=== PATIENT | male | born 1945 | race African-American/Black ===

== ENCOUNTER 2016-06-18 05:56 | Inpatient (IN) | payer OTHER ==
--- NOTE | ~2016-06-18 | OR ---
Unit #: [id number] #: [id number] Patient: GEORGE BENTLEY [id number] [address] [place], [place] [address] [id number] I MR#: [id number] NAME: GEORGE BENTLEY ROOM: [facility] Date of Procedure: 06/18/2016 Admission Date: 06/18/2016 Surgeon: Tony Hernandez M.D. : 1945 Attending Physician: Tony Hernandez M.D. Primary Care Physician: Sol Wall M.D. OPERATIVE REPORT PREOPERATIVE DIAGNOSIS Left shoulder osteoarthritis. POSTOPERATIVE DIAGNOSIS 1. Left shoulder osteoarthritis. 2. Left shoulder biceps tenosynovitis. PROCEDURES PERFORMED 1. Left reverse shoulder arthroplasty. 2. Left shoulder biceps tenodesis. IMPLANTS 1. DJO Surgical P2 baseplate with 32, neutral glenosphere. 2. DJO Surgical AltiVate size 8 press-fit humeral stem with a 32, +4 semiconstrained humeral socket liner. NURSE LEADER SHIRA Solis. ANESTHESIA General with interscalene nerve block. ESTIMATED BLOOD LOSS 200 mL. COMPLICATIONS None apparent. DRAINS Medium Hemovac x1. INDICATIONS FOR PROCEDURE Mr. Bentley is a 71-year-old gentleman with a history of longstanding glenohumeral joint osteoarthritis. He has medialization of the glenoid. We have discussed anatomic total shoulder arthroplasty versus reverse shoulder arthroplasty. He prefers one surgery with low risk for failure and need for revision. As such, we have elected to proceed with a reverse shoulder arthroplasty. The risks, benefits, and nature of the surgery have been discussed with the patient. He elected to proceed. DESCRIPTION OF PROCEDURE The patient was identified in the preoperative holding area. The Unit #: [id number] #: [id number] Patient: GEORGE BENTLEY operative site was marked. Preoperative antibiotics were administered. A regional anesthetic block was performed. The patient was brought to the operating room and placed supine on the operating table. A general anesthetic was induced. The left upper extremity was then prepped and draped in sterile fashion. A standard deltopectoral incision was made. Dissection was carried down through the subcutaneous tissues. The cephalic vein was retracted medially with the pectoralis major. The subdeltoid space and subacromial spaces were developed. The 3 sisters were identified medially along the inferior border of the subscapularis. These were cauterized with the Bizerra.rus electrocautery. The long head of the biceps tendon sheath was then opened and was noted to have significant amount of proliferative tenosynovium present. A biceps tenodesis was then performed to the superior border of the pectoralis major tendon with a #2 FiberWire using a locking Krackow stitch. The biceps tendon sheath was then opened all the way up into the rotator interval into the base of the labrum. The biceps was then exposed and excised. The subscapularis was released under direct subscapularis peel. The shoulder was dislocated anteriorly. Humeral head osteophytes were removed with an osteotome. The extramedullary cutting guide was attached and the humeral head osteotomy was performed. The humeral head was noted to have full-thickness cartilage loss with significant pitting and even a synovial type lining on the head itself. The humerus was then subluxed posteriorly and the glenoid exposed. Exposure was initially quite tight. His soft tissue was extremely contracted. A circumferential labral release was performed as the labrum was excised. The inferior capsule was released off the inferior aspect of the glenoid. The axillary nerve was identified by digital palpation. This was protected and the inferior capsule released as well and performing a capsulotomy. The humerus was unable to float away from the glenoid and we had significantly improved mobility and posterior displacement of the humerus. Once we had adequate exposure, we drilled our centering hole and then inserted the reaming tap. We reamed with a starter and small reamers. We then inserted the base plate. This achieved solid purchase. We then placed 4 peripheral locking screws. This was a 30 mm screw superiorly, 18 mm inferiorly, and 14 mm anteriorly and posteriorly. The 32 neutral glenosphere was inserted. Attention was then turned back to the humerus, which was delivered back into the operative field anteriorly. A freehand ball reaming was performed of the humerus. We sounded the canal with a size 8 reamer. It had fairly thick cortices and we elected to place a size 8 stem. This was then press-fit and achieved good solid press-fit. We then trialed with a 32 neutral, 32 +4, and 32 +4 semiconstrained humeral socket liner. The best tension was with the semiconstrained liner. The shoulder was stable throughout range of motion and he had passive forward elevation of greater than 130 degrees. The real component was then impacted in place. The shoulder was then reduced and again taken through range of motion was stable. The subscapularis was not repaired. The leading edge of this was excised so as to not impinge in the prosthetic articulation. The wound was then irrigated with a dilute Betadine solution followed by pulsatile lavage. The deltopectoral interval was closed with 0 Vicryl followed by 2-0 Vicryl in the subcutaneous tissues and a running Monocryl in the skin. Steri-Strips and sterile dressings were applied. The patient was placed into a shoulder immobilizer. DISPOSITION Unit #: [id number] #: [id number] Patient: GEORGE BENTLEY Stable to the recovery room. Dictated by... Leeroy Gregg/lindsey TD: 06/19/2016 01:20 JOB #: [id number] OPERATIVE REPORT X Tony Hernandez MD X PROCEDURE OPERATIVE NOTE
--- NOTE | ~2016-06-18 | DS ---
Unit #: [id number] #: [id number] Patient: GEORGE BENTLEY [id number] [address] [place], [place] [address] [id number] I MR#: [id number] NAME: GEORGE BENTLEY ROOM: 456 Age: 71 Sex: M Admission Date: 06/18/2016 : 1945 Discharge Date: 06/19/2016 Attending Physician: Tony Hernandez M.D. Primary Care Physician: Sol Wall M.D. DISCHARGE SUMMARY ADMITTING DIAGNOSIS Left glenohumeral joint arthritis. DISCHARGE DIAGNOSIS Left glenohumeral joint arthritis, status post left reversed shoulder arthroplasty. SECONDARY DIAGNOSES 1. History of PE. 2. Thrombophilia. 3. Hypertension. 4. Diabetes mellitus. 5. Benign prostatic hypertrophy. PROCEDURE On 06/18/2016, Mr. Bentley underwent a left reversed shoulder arthroplasty. Please see operative report for further details. BRIEF HISTORY Mr. Bentley is a 71-year-old male who we have been treating for left glenohumeral joint arthritis. He has failed conservative treatment at this point and would like to discuss surgical interventions. We recommended a left reversed shoulder arthroplasty. The benefits, risks, and alternative were discussed with the patient and he has elected to proceed with surgery. HOSPITAL COURSE After surgery, the patient was transferred to the orthopedic unit for postoperative care. The night of surgery was uneventful. The patient remained stable and his pain was well controlled. On postoperative day #1, the patient's vital signs remained stable. He was awake, alert, and oriented x3 in no acute distress. His left upper extremity incision was clean, dry, and intact with no surrounding erythema, warmth, or hematoma. He was neurovascularly intact with median, ulnar, and radial nerves. He had normal sensation to light touch in all five digits. His hemoglobin was 13.4, white blood cell count was 8.3, and INR was 1. He is currently on prophylactic dose of Lovenox and his Coumadin was restarted to get him back to therapeutic levels. Postoperative x-rays of the left shoulder reveal that he is status post left reversed shoulder arthroplasty. Hardware remains in correct anatomical alignment. The patient worked with physical therapy today who recommended additional PT to build strength. The patient does live at home with his significant other, but she has a difficult time getting Unit #: [id number] #: [id number] Patient: GEORGE BENTLEY around herself so the patient is requesting home health physical therapy to work on strengthening and for other assistance. His Hemovac drain had approximately 110 mL of discharge overnight. This was discontinued in the room today. He is nonweightbearing on his left upper extremity in his sling. CONDITION AT DISCHARGE Stable. DISPOSITION The patient will be discharged home with home health therapy. He also has a significant other who can help with postoperative care. DISCHARGE MEDICATIONS Include: 1. Flomax 0.4 mg every day. 2. Lovenox 40 mg subcu. every 24 hours. 3. Coumadin 2.5 mg Thursday through Thursday. 4. Coumadin 5 mg on Thursday. 5. Glucophage 1500 mg p.o. in the morning. 6. Glucophage 1000 mg p.o. at bedtime. 7. Lisinopril 10 mg p.o. in the morning. 8. Percocet 5/325 mg 1-2 tabs p.o. q.4 hours p.r.n. The patient was sent home with prescriptions for Percocet, dispense #65, and Lovenox, dispense #4. DISCHARGE INSTRUCTIONS 1. The patient will be discharged home with home health therapy. 2. He will follow up with Dr. Hernandez in two weeks' time. 3. He will follow up with Dr. Gan, his plastic manager and oncologist on 06/23/2016, for his INR to be checked. Anticoagulation was discussed with Dr. Gan and he recommending restarting the Coumadin after surgery and placing the patient on Lovenox postoperatively at 40 mg every 24 hours until his INR is therapeutic. The patient will be sent home on Lovenox and his Coumadin will be restarted at this time. 4. Patient will be nonweightbearing of the lower extremity in a sling. He may remove his sling 2-3 times a day to perform pendulum as well as range of motion of the elbow, wrist, and hand. 5. He will perform daily dressing changes to the left upper extremity incision. 6. He is not to get his incision wet. He may shower, but he must keep an occlusive dressing over the incision site. Dictated by... Maddi Lee APRN for Leeroy Gregg/ledy TD: 06/20/2016 10:00 JOB #: [id number] Unit #: [id number] #: [id number] Patient: PAYAL BENTLEYRUPANATALEE DISCHARGE SUMMARY X MADDI LEE APRN X DISCHARGE SUMMARY
--- NOTE | ~2016-06-18 | DS ---
Unit #: [id number] #: [id number] Patient: GEORGE BENTLEY [id number] [address] [place], [place] [address] [id number] I MR#: [id number] NAME: GEORGE BENTLEY ROOM: [facility] Age: 71 Sex: M Admission Date: 06/18/2016 : 1945 Discharge Date: 06/19/2016 Attending Physician: Tony Hernandez M.D. Primary Care Physician: Sol Wall M.D. DISCHARGE SUMMARY ADDENDUM The patient's hematology and oncologist is Dr. Shelton Escalante. In his discharge summary, it states that it is Dr. Gan but this is an addendum to correct that. He will follow up with Dr. Shelton Escalante with the [facility] hematology and oncology group. His followup appointment is to be made for 06/23/2016. Dictated by... Maddi Lee APRN for Tony Hernandez M.D. TAMIKO/zach TD: 06/23/2016 07:05 JOB #: [id number] DISCHARGE SUMMARY X MADDI LEE APRN X DISCHARGE SUMMARY
--- NOTE | ~2016-06-18 | CR229 ---
[facility] A Service of [facility] & [facility] RADIOLOGY TEXT RESULTS PATIENT: GEORGE BENTLEY LOCATION: [facility] 456-01 : [birth year] UNIT #: [id number] AGE: [address]: Tony Hernandez MD SEX: M ORDER DR: [id number] [facility] [address] [place], [place] [address] [id number] MR#: [id number] Acc #: [id number] NAME: GEORGE BENTLEY : 1945 SEX: M STUDY DATE/TIME: 06/18/2016 11:07 UNIT: [facility] ROOM: [facility] STUDY DESCRIPTION: CR Shoulder Min 2 View Lt Attending Physician: Tony Hernandez M.D. Ordering Physician: Tony Hernandez M.D. Primary Care Physician: Sol Wall M.D. MEDICAL IMAGING REPORT This report is preliminary unless electronic signature is present EXAM Left shoulder series 06/18/2016 HISTORY Postop total PACU front. FINDINGS AP internal-external rotation views left shoulder presented. Status post left shoulder arthroplasty. Orthopedic hardware normally located and aligned. Quileute bony structures show no fracture. Surgical drain in the operative bed. Small amount of subcutaneous air in the operative bed. The visualized ribs are intact. There are some patchy and linear densities in the visualized left lung which is low in volume. Findings probably reflect postoperative atelectasis. Attention at followup recommended. Dictated by... Josias Hernandez M.D. THIS IS AN ELECTRONICALLY VERIFIED REPORT Josias Hernandez M.D. at 06/19/2016 11:43 AM GLEN/paul TD: 06/18/2016 14:19 JOB #: [id number] MEDICAL IMAGING REPORT COPY
[~2016-06-18 05:56] MED LIST: ALEVE220 M1 PO; COUMADIN2.5 MG PO; COUMADIN5 MG; COUMADIN5 MG PO; FLOMAX0.4 M1 PO; LISINOPRIL10 MG PO; LOVENOX150 MG/ML SUBQ; METFORMIN PO; SYNTHROID
[2016-06-18 07:09] LABS: PROTHROMBIN TIME (PATIENT) 10.7 SECONDS (9.6-11.5)
[2016-06-19 03:53] LABS: BASOPHIL% 0.4 % (0-2.5); EOSINOPHIL# 0.1 X10e3 (0-0.7); EOSINOPHIL% 1.4 % (0.0-7.0); HEMATOCRIT 40.8 % (38.0-50.0); HEMOGLOBIN 13.4 gm/dL (13.0-16.0); LYMPHOCYTE# 0.9 X10e3 (1.0-3.5); LYMPHOCYTE% 11.3 % (17.0-45.0); MEAN CELL VOLUME 85.3 FL (83-96); MEAN CORPUSCULAR HGB CONC 32.8 g/dL (30-36); MEAN PLATELET VOLUME 8.9 FL (6.5-11.5); MONOCYTE# 0.7 X10e3 (0-1.0); MONOCYTE% 8.8 % (3.0-12.0); NEUTROPHIL# 6.5 X10e3 (1.5-7.1); NEUTROPHIL% 78.1 % (40-75); PLATELET COUNT 204 X10e3 (140-420); RED BLOOD COUNT 4.78 X10e (3.90-5.60); RED CELL DISTRIBUTION WIDTH 15.9 % (11.0-15.5); WHITE BLOOD COUNT 8.3 X10e3 (4.0-10.5)
[2016-06-19 03:56] LABS: DIFF IND NO
[2016-06-19 04:02] LABS: PROTHROMBIN TIME (PATIENT) 10.6 SECONDS (9.6-11.5)
[2016-06-19] MEDS ORDERED: PERCOCET5/325 PO (17:15)
[2016-06-19] MEDS ORDERED: LOVENOX SUBQ (17:16)
== END 2016-06-19 18:14 | disposition home health service (06) | DRG 483 ==
LOC: CSUR 05:56 → CPACUOF 07:00 → C4B 12:00
PROVIDERS: Orthopaedic Surgery
PROC: 0RRK00Z Replacement of Left Shoulder Joint with Reverse Ball and Socket Synthetic Substitute, Open Approach (ICD-10-PCS; principal; 2016-06-18 07:30)
DX: M19.012 Primary osteoarthritis, left shoulder (principal); D68.59 Other primary thrombophilia; E11.9 Type 2 diabetes mellitus without complications; M87.9 Osteonecrosis, unspecified; Z86.711 Personal history of pulmonary embolism; Z79.01 Long term (current) use of anticoagulants; I10 Essential (primary) hypertension; Z79.84 Long term (current) use of oral hypoglycemic drugs; N40.0 Benign prostatic hyperplasia without lower urinary tract symptoms; R35.1 Nocturia; I73.9 Peripheral vascular disease, unspecified; M65.812 Other synovitis and tenosynovitis, left shoulder; K21.9 Gastro-esophageal reflux disease without esophagitis; E03.9 Hypothyroidism, unspecified
CPT/HCPCS: 73030; 82947; 85025; 85610; 94010; 94760; 94761; 97116; 97162; 97530; C1713; C1776; G8978-GP; G8979-GP; G8980-GP; J0131; J0330; J0690; J1170; J1650; J1815; J2250; J2270; J2370; J2710; J2795; J3010